=== PATIENT | male | born 1980 | race African-American/Black ===

== ENCOUNTER 2016-07-19 17:29 | Emergency (ER) | payer BC ==
[2016-07-19 17:34] VITALS: BP 120/77
[2016-07-19] MEDS ORDERED: IBUPROFEN 800 MG TABLET PO ONE (18:00)
--- NOTE | 2016-07-19 18:01 | ER Document Report ---
ED Medical Screen (RME) - General Stated Complaint: FALL/NECK PAIN Mode of Arrival: Ambulatory Information source: Patient Notes: Patient states that he slipped and fell yesterday while at a restaurant. Patient with right trapezius tenderness. Patient with right clavicle tenderness I have greeted and performed a rapid initial assessment of this patient. A comprehensive ED assessment and evaluation of the patient, analysis of test results and completion of the medical decision making process will be conducted by additional ED providers. Physical Exam - Vital signs Vitals: Temp Pulse Resp BP Pulse Ox 97.6 F 56 L 16 120/77 99 07/19/16 17:34 07/19/16 17:34 07/19/16 17:34 07/19/16 17:34 07/19/16 17:34 - Extremities General upper extremity: Tender - Right clavicle Course - Vital Signs Vital signs: Temp Pulse Resp BP Pulse Ox 97.6 F 56 L 16 120/77 99 07/19/16 17:34 07/19/16 17:34 07/19/16 17:34 07/19/16 17:34 07/19/16 17:34
[2016-07-19] MEDS ORDERED: OXYCODONE-ACETAMINOPHEN 5-325 MG TABLET PO ONE (18:39)
--- NOTE | 2016-07-19 18:43 | ER Document Report ---
HPI - HPI Patient complains to provider of: right upper back pain Onset: Yesterday Onset/Duration: Sudden Quality of pain: Throbbing Severity: Severe Pain Level: 4 Context: Patient reports he was walking through [place] yesterday when he slipped and landed on his right upper back. He reports that it hurt at the time but hurts more now. Reports history of fractured collarbone when he played football when he was younger. Complains pain when he raises his arm above his head. No change in LOC. No complaints of difficulty breathing. Associated Symptoms: None Exacerbated by: Movement Relieved by: Denies Similar symptoms previously: No Recently seen / treated by doctor: No - DERM Skin Color: Normal Past Medical History - General Information source: Patient - Social History Smoking Status: Never Smoker Chew tobacco use (# tins/day): No Frequency of alcohol use: None Drug Abuse: None Family History: None Patient has suicidal ideation: No Patient has homicidal ideation: No Renal/ Medical History: Denies: Hx Peritoneal Dialysis GI Medical History: Reports: Hx Diverticulitis Traumatic Medical History: Reports: Hx Fractures Past Surgical History: Reports: Hx Abdominal Surgery Vertical Provider Document - CONSTITUTIONAL Agree With Documented VS: Yes Exam Limitations: No Limitations General Appearance: WD/WN, Mild Distress - WINCES WHEN TRAPEZIUS AREA IS PALPATED - HEENT HEENT: Atraumatic, Normocephalic - NECK Neck: Normal Inspection, Supple - No complaints of vertebral tenderness. negative: Lymphadenopathy-Left, Lymphadenopathy-Right - RESPIRATORY Respiratory: Breath Sounds Normal, No Respiratory Distress, Chest Non-Tender O2 Sat by Pulse Oximetry: 99 - CARDIOVASCULAR Cardiovascular: Regular Rate, Regular Rhythm - GI/ABDOMEN Gastrointestinal: Abdomen Soft, Abdomen Non-Tender - BACK Back: Normal Inspection - NO OBVIOUS deformity. Good distal movement and sensation. Complains of right trapezius pain with palpation - MUSCULOSKELETAL/EXTREMETIES Musculoskeletal/Extremeties: MAEW, FROM, Non-Tender - good radial pulse, good tender in the clavicular area. Tenderness his arm above his head without problem but does complain to pain today with wheezing. - NEURO Level of Consciousness: Awake, Alert, Appropriate Motor/Sensory: No Motor Deficit - DERM Integumentary: Warm, Dry Adult Front & Back Diagram: 1 - c/o pain 2 - some tenderness with palpation Course - Re-evaluation Re-evalutation: 07/19/16 19:06 Radiology notes "There is irregularity of the mid clavicle which could represent healed prior fracture versus acute fracture. Correlate clinically. Patient has past medical history of fractured collarbone. Patient is a little bit tender. Will treat with sling , percocet and instructed patient to follow up with orthopedics for recheck of the area. He verbalized understanding - Vital Signs Vital signs: Temp Pulse Resp BP Pulse Ox 97.6 F 56 L 16 120/77 99 07/19/16 17:34 07/19/16 17:34 07/19/16 17:34 07/19/16 17:34 07/19/16 17:34 - Diagnostic Test Radiology reviewed: Image reviewed, Reports reviewed - IMPRESSION: There is irregularity of the mid clavicle which could represent healed prior fracture versus acute fracture. Correlate clinically. Procedures - Immobilization Right Arm Immobilizer type: Sling Performed by: RN Post-Proc Neuro Vasc Exam: Unchanged from pre-exam Discharge - Discharge Clinical Impression: right trapezius pain, midclavicle irregularity Condition: Stable Disposition: HOME, SELF-CARE Instructions: Oral Narcotic Medication ([facility]), Sling as Treatment ([facility]) Additional Instructions: *You have been evaluated for right trapezius pain, possible mid clavicle fracture *Maintain the sling *Rest/Ice packs to the site *Follow up with orthopedics this week-call for an appointment *Take medication as prescribed *Return to ED for worsening condition, changes, needs Prescriptions: Oxycodone HCl/Acetaminophen [Percocet 5-325 mg Tablet] 1 - 2 tab PO ASDIR PRN # 15 tablet PRN Reason: Forms: Return to Work Referrals: [facility] [Provider Group] - Follow up in 3-5 days
== END 2016-07-19 19:12 | disposition home or self-care (01) ==
LOC: ER 17:29
DX: M54.89 Other dorsalgia (principal); M79.1 Myalgia; W01.0XXA Fall on same level from slipping, tripping and stumbling without subsequent striking against object, initial encounter; Y92.511 Restaurant or cafe as the place of occurrence of the external cause; Z87.81 Personal history of (healed) traumatic fracture
CPT/HCPCS: 99284